=== PATIENT | male | born 1945 | race Caucasian/White ===

== ENCOUNTER → 2016-11-26 09:54 | Outpatient (CLI) | payer MEDICARE, OTHER | END | disposition home or self-care (01) | LOC: D.RT 09:54 | DX: D64.9 Anemia, unspecified (principal) ==

== ENCOUNTER 2017-02-16 17:22 | Emergency (ER) | payer MEDICARE, OTHER ==
[2017-02-16 17:58] LABS: HEMATOCRIT 35.5 % (42.0-54.0); HEMOGLOBIN 11.4 g/dL (13.5-17.5); MCH 31.5 pg (26.0-34.0); MCHC 32.1 g/dL (31.0-37.0); MCV 98.1 fL (80.0-100.0); MEAN PLATELET VOLUME 8.8 fL (7.4-10.4); PLATELET COUNT 316 10x3/uL (130-400); RBC 3.62 10x6/uL (4.20-6.10); WBC 5.9 10x3/uL (4.8-10.8)
[2017-02-16 18:20] LABS: ALBUMIN 3.7 g/dL (3.4-5.0); ANION GAP 12.7 mmol/L (8-16); BILIRUBIN - TOTAL 0.23 mg/dL (0.2-1.3); CALCIUM 8.6 mg/dL (8.5-10.1); CARBON DIOXIDE 27.7 mmol/L (21.0-32.0); CREATININE - SERUM 1.4 mg/dL (0.6-1.3); POTASSIUM - SERUM 5.4 mmol/L (3.5-5.1); PROTEIN - SERUM 6.3 g/dL (6.4-8.2)
[2017-02-16 19:11] LABS: EOSINOPHILS 3 % (0-7); LYMPHOCYTES 61 % (15-50); MONOCYTES 12 % (2-11); NEUTROPHILS 23 % (40-80)
[2017-02-16 19:12] LABS: PLATELET ESTIMATE NORMAL
== END 2017-02-16 22:00 | disposition home or self-care (01) ==
LOC: D.ER 17:22
PROVIDERS: Family Medicine
DX: J11.1 Influenza due to unidentified influenza virus with other respiratory manifestations (principal); R05 Cough; D46.9 Myelodysplastic syndrome, unspecified